=== PATIENT | female | born 1975 | race Caucasian/White ===

== ENCOUNTER → 2024-01-13 10:25 | Outpatient (REF) | payer OTHER, SELFPAY | LOC: RCS 10:25 | PROVIDERS: ATTENDING PHYSICIAN Nurse Practitioner | DX: I48.0 Paroxysmal atrial fibrillation (principal) | CPT/HCPCS: 93225; 93226 ==

== ENCOUNTER → 2024-05-18 10:08 | Outpatient (REF) | payer OTHER, SELFPAY | LOC: HWRAD 10:08 | PROVIDERS: ATTENDING PHYSICIAN Nurse Practitioner | DX: J06.9 Acute upper respiratory infection, unspecified (principal) | CPT/HCPCS: 71046 ==

== ENCOUNTER → 2024-08-09 17:36 | Outpatient (REF) | payer OTHER, SELFPAY | LOC: RAD 17:36 | PROVIDERS: ATTENDING PHYSICIAN Hospitalist; FAMILY PHYSICIAN Nurse Practitioner | DX: J06.9 Acute upper respiratory infection, unspecified (principal) | CPT/HCPCS: 71046 ==

== ENCOUNTER → 2024-09-13 18:54 | Outpatient (REF) | payer OTHER, SELFPAY | LOC: WDC 18:54 | PROVIDERS: ATTENDING PHYSICIAN Nurse Practitioner | DX: Z12.31 Encounter for screening mammogram for malignant neoplasm of breast (principal) | CPT/HCPCS: 77063; 77067 ==

== ENCOUNTER → 2024-09-20 06:18 | Day surgery (SDC) | payer OTHER, SELFPAY | LOC: GI 06:18 | PROVIDERS: ATTENDING PHYSICIAN Internal Medicine Gastroenterology; FAMILY PHYSICIAN Nurse Practitioner | DX: K22.89 Other specified disease of esophagus (principal); K31.89 Other diseases of stomach and duodenum; R12 Heartburn; K31.A0 Gastric intestinal metaplasia, unspecified; K22.70 Barrett's esophagus without dysplasia | CPT/HCPCS: 43239; 88305; 88342 ==

== ENCOUNTER 2025-01-06 09:08 | Emergency (ER) | payer OTHER, SELFPAY ==
[2025-01-06 09:10] VITALS: BP 149/94
--- NOTE | 2025-01-06 09:40 | ED.GENMED ---
History of Present Illness
General
Chief Complaint: Alcohol Problem
Source: patient
Exam Limitations: none
Time Seen by Provider: 01/06/25 09:25
History of Present Illness
History of Present Illness:
49yoF with a history of alcohol abuse, anxiety, bipolar disorder, hyperlipidemia, hypothyroidism, and GERD presenting via EMS for detox evaluation. Patient would like to stop drinking alcohol. She states her and her mother have been calling around
to facilities and she has not been accepted anywhere yet. Patient has been drinking Purell for financial reasons. She reports diluting the Purell in water and has been drinking up to 24 ounces of Purell a day. She states her last drink was 1-2
days ago, she is not sure exactly when. Patient reports feeling very restless and feels like her skin is crawling 'from the inside of my head out.' She denies any tremors, nausea, or vomiting. She reports a history of 1 withdrawal seizure in the
past in 2012.
Past History
Past History
ED Past Medical History: Hypercholesterolemia, Hypothyroidism, Psychiatric (Bipolar disorder, Depression) and Other (Alcohol abuse, Constipation)
ED Past Surgical History: Other (Bilateral Hernia repair)
Social History
Tobacco: Smoker
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
Drug: None
Personal:
Living: with family (Resides with mother)
Employment: Not employed
Family History
Family History: Other (reviewed and noncontributory)
Phy Exam
General Physical Exam
General Presentation: well appearing and no apparent distress
General Skin: warm and dry
General Habitus: normal
General Mental: alert
ENT Exam
ENT Exam: normocephalic
Cardiovascular Exam
Cardiovascular Exam: no murmur and tachycardia
Pulmonary Exam
Pulmonary Exam: lungs clear, no respiratory distress, no rales, no crackles, no rhonchi and no wheezing
Neurological Exam
Neurological Exam: alert and other (No tremors noted)
Oz Coma Scale
Eye Opening: Spontaneous
Verbal Response: Oriented
Motor Response: Obeys Commands
GCS Total Score: 15
Skin Exam
Skin Exam: normal color and warm/dry
Psychiatric Exam
Psychiatric Exam: normal mood/affect
Scores
Withdrawal Assessment of Alcohol
Withdrawal Assessment Completed?: Not applicable
Course
Orders/Labs/Results
Orders:
Orders
01/06/25 09:39
Electrocardiogram (*1) Urgent
Reason for Study: QTc Monitoring
EKG- Treatment ONCE
0.9% Sodium Chloride 1000 ml [Nss] 1,000 ml IV BOLUS
01/06/25 10:00
Alcohol Urgent
Complete Blood Count/With Diff Urgent
Comprehensive Metabolic Panel Urgent
Magnesium Urgent
01/06/25 10:30
Potassium Chloride [KCl] 40 meq PO NOW STA
01/06/25 15:40
Lorazepam [Ativan] 1 mg IV NOW STA
Abnormal Lab Results
01/06/25
10:00
WBC 2.9 L 10^3/uL
(4.8-10.8)
RBC 4.14 L 10^6/uL
(4.20-5.40)
Hgb 11.7 L g/dL
(12.0-16.0)
Hct 34.7 L %
(37.0-47.0)
RDW 19.1 H %
(11.5-14.5)
Plt Count 128 L 10^3/uL
(130-400)
Potassium 3.3 L mmol/L
(3.5-5.1)
Glucose 120 H mg/dl
(70-99)
Calcium 8.2 L mg/dl
(8.4-10.2)
AST 167 H U/L
(14-36)
ALT 149 H U/L
(0-35)
01/06/25 10:00
01/06/25 10:00
Vital Signs
Initial and Last Documented VS:
Initial Vital Signs
Temp Pulse Resp BP Pulse Ox
98.8 F 115 18 149/94 97
01/06/25 09:10 01/06/25 09:10 01/06/25 09:10 01/06/25 09:10 01/06/25 09:10
Last Documented Vital Signs
Temp Pulse Resp BP Pulse Ox
98.8 F 118 20 120/81 95
01/06/25 09:10 01/06/25 14:16 01/06/25 14:16 01/06/25 14:16 01/06/25 12:32
MDM/Problems Addressed
Differential Diagnosis Includes:
49yoF here requesting alcohol detox. 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 Last drink reported to be 1-2 days. C/o feeling restless but denies tremors. HR 115 on arrival. She is well appearing in no distress. No tremors noted on exam.
Differential diagnosis includes but is not limited to: alcohol intoxication, alcohol withdrawal, dehydration
Initial ED plan: Check CBC, CMP, magnesium, ETOH, and EKG. IV fluid bolus. Will consult NILSA.
*EKG
Interpreted by ED Provider?: Yes
EKG Intrepretation Date: 01/06/25
Heart Rate: 109
Rate: tachycardiac
Rhythm: sinus
[place]: normal axis
Interval: other (QTc 500, AK 104)
QRS Pattern: normal QRS
Ischemia: no ischemia
*Critical Care Note
Total Time (30-74mins, 75-104mins- exclusive of procedures): Not Applicable
Update Note
Update Note:
ETOH 284. Labs reveal a transaminitis with AST 167 and ALT 149. Total bilirubin normal. Potassium 3.3 which was replaced. Patient was evaluated by NILSA and she was ultimately accepted at [facility]. She did receive 1mg IV Ativan prior to
discharge for increasing anxiety. [facility] staff picked patient up from the ED at time of discharge.
ED Attending Note
-
Portions of this chart may have been created with voice recognition software.� Occasional wrong word or��sound alike� substitutions may have occurred due to the inherent limitations of voice recognition software.
Discharge Plan
Departure
Patient Disposition: Home (Routine Discharge)
Date of Disposition: 01/06/25
Time of Disposition: 14:57
Patient with high blood pressure during this ER visit?: No
Discharge Problem:
Alcohol abuse, Transaminitis
Instructions: Alcohol Use Disorder (DC)
Prescriptions:
No Action
Levothyroxine
100 mcg PO DAILY
pravastatin 40 MG tablet
40 mg PO DAILY
naltrexone 50 MG tablet
50 mg PO DAILY
hydroxyzine pamoate [Vistaril] 25 MG capsule
25 mg PO PRN PRN (Reason: prn at bedtime)
Patient Comments:
1 or 2 capsules
Bupropion Hcl [Bupropion Xl] 150 MG Tab.Er.24h
100 mg PO BID
Cholecalciferol (Vitamin D3) [Vitamin D3] 50 MCG Capsule
50 mcg PO DAILY
haloperidol 0.5 MG tablet
1 mg PO DAILY PRN (Reason: agitation)
melatonin 10 MG tablet
10 tab PO HS PRN (Reason: sleep)
carbamazepine [Tegretol XR] 400 MG tablet extended release 12 hr
400 mg PO BID Qty: 60 0RF
gabapentin 300 MG capsule
600 mg PO TID Qty: 90 0RF
nicotine 7 MG patch 24 hour
7 mg transdermal DAILY 0RF
Referrals:
Ellie Calle CRNP [Family Provider] -
Activity Restrictions/Additional Instructions:
You are being discharged directly to [facility] for further care. Return to the ER with any new or worsening symptoms.
Interventions
Interventions:
*Risk Screen - Suicide Last Done: 01/06/25 09:17
*General Assessment Last Done: 01/06/25 09:17
*Neglect/Abuse Screening Last Done: 01/06/25 09:17
*ED- Fall Risk Assessment Last Done: 01/06/25 10:20
*ED COVID-19 Vaccine History Last Done: 01/06/25 09:31
*Nursing Disposition Last Done: 01/06/25 16:20
ED- Neurological Assessment Last Done: 01/06/25 10:10
ED-Psychological Assessment Last Done: 01/06/25 10:10
Discharge Date and Time
Discharge Date/Time: 01/06/25 16:21
Print Language: MALAY
[2025-01-06] MEDS: NSS 1000 IV (09:59)
[2025-01-06 10:10] VITALS: BP 140/82
[2025-01-06 10:12] LABS: % Eosinophils 0.7 % (0-6); % Immature Granulocytes 0.3 % (0-0.5); % Lymphocytes 39.1 % (20.5-51.1); % Monocytes 6.8 % (1.7-9.3); % Neutrophils 52.1 % (42.2-75.2); Absolute Lymphocytes 1.2 10^3/uL (1.2-3.4); Absolute Monocytes 0.2 10^3/uL (0.1-0.6); Absolute Neutrophils 1.5 10^3/uL (1.4-6.5); Hematocrit 34.7 % (37.0-47.0); Hemoglobin 11.7 g/dL (12.0-16.0); Mean Corp Hgb Conc. 33.7 g/dL (33.0-37.0); Mean Corpuscular Hgb 28.3 pg (27.0-31.0); Mean Corpuscular Volume 83.8 fL (81.0-99.0); Mean Platelet Volume 8.9 fL (7.4-10.4); Nucleated Red Blood Cells % 0 %; Platelet Count 128 10^3/uL (130-400); Red Blood Cell Count 4.14 10^6/uL (4.20-5.40); Red Cell Dist. Width 19.1 % (11.5-14.5); White Blood Cell Count 2.9 10^3/uL (4.8-10.8)
[2025-01-06 10:28] LABS: ALT (SGPT) 149 U/L (0-35); AST (SGOT) 167 U/L (14-36); Albumin 4.5 g/dl (3.5-5.0); Alcohol 284 mg/dl; Alkaline Phosphatase 99 U/L (38-126); Blood Urea Nitrogen 11 mg/dl (7-17); Calcium 8.2 mg/dl (8.4-10.2); Carbon Dioxide 22 mmol/L (22-30); Chloride 100 mmol/L (98-107); Glucose 120 mg/dl (70-99); Potassium 3.3 mmol/L (3.5-5.1); Sodium 137 mmol/L (135-145); Total Bilirubin 0.5 mg/dl (0.2-1.3); Total Protein 7.1 g/dl (6.3-8.2); eGFR > 60.00
[2025-01-06] MEDS: KCL 40 MEQ PO (10:34)
[2025-01-06 11:00] VITALS: BP 113/82
[2025-01-06 12:32] VITALS: BP 101/68
[2025-01-06 14:16] VITALS: BP 120/81
[2025-01-06] MEDS: ATIVAN 1 MG IV (16:15)
== END 2025-01-06 16:21 | disposition home or self-care (01) ==
LOC: EMR 09:08
PROVIDERS: Physician Assistant; EMERGENCY PHYSICIAN Emergency Medicine; FAMILY PHYSICIAN Nurse Practitioner
DX: F10.10 Alcohol abuse, uncomplicated (principal); R74.01 Elevation of levels of liver transaminase levels; E03.9 Hypothyroidism, unspecified; E78.00 Pure hypercholesterolemia, unspecified; F31.9 Bipolar disorder, unspecified; F17.200 Nicotine dependence, unspecified, uncomplicated; K21.9 Gastro-esophageal reflux disease without esophagitis
CPT/HCPCS: 99283; 96374; 96361; 80053; 82077; 83735; 85025; 93005

== ENCOUNTER 2025-04-22 06:17 | Day surgery (SDC) | payer OTHER, SELFPAY | END 2025-04-22 09:31 | disposition home or self-care (01) | LOC: GI 06:17 | PROVIDERS: ATTENDING PHYSICIAN Internal Medicine Gastroenterology | DX: K29.70 Gastritis, unspecified, without bleeding (principal); K44.9 Diaphragmatic hernia without obstruction or gangrene; K31.89 Other diseases of stomach and duodenum | CPT/HCPCS: 43239; 88305; 88342 ==

== ENCOUNTER → 2025-05-08 14:40 | Emergency (ER) | payer OTHER, SELFPAY ==
[2025-05-08 14:42] VITALS: BP 105/69
[2025-05-08 15:23] LABS: Blood Urea Nitrogen 26 mg/dl (7-17); Calcium 8.6 mg/dl (8.4-10.2); Carbon Dioxide 18 mmol/L (22-30); Chloride 96 mmol/L (98-107); Glucose 95 mg/dl (70-99); Sodium 123 mmol/L (135-145); eGFR > 60.00
[2025-05-08 15:25] LABS: Hematocrit 32.8 % (37.0-47.0); Hemoglobin 11.3 g/dL (12.0-16.0); Mean Corp Hgb Conc. 34.5 g/dL (33.0-37.0); Mean Corpuscular Volume 78.5 fL (81.0-99.0); Nucleated Red Blood Cells % 0 %; Platelet Count 101 10^3/uL (130-400); Red Cell Dist. Width 19.7 % (11.5-14.5)
== END | disposition left against medical advice (07) ==
LOC: EMR 14:40
PROVIDERS: EMERGENCY PHYSICIAN Emergency Medicine
DX: R42 Dizziness and giddiness (principal); R26.81 Unsteadiness on feet
CPT/HCPCS: 80048; 85025

== ENCOUNTER → 2025-09-19 11:23 | Outpatient (REF) | payer OTHER, SELFPAY | LOC: WDC 11:23 | PROVIDERS: ATTENDING PHYSICIAN Nurse Practitioner | DX: Z12.31 Encounter for screening mammogram for malignant neoplasm of breast (principal) | CPT/HCPCS: 77063; 77067 ==